=== PATIENT | male | born 1990 | race African-American/Black ===

== ENCOUNTER → 2021-07-13 | Outpatient (CLI) | payer BC, OTHER ==
--- NOTE | 2021-07-13 09:20 | RAD ---
COMPLETE ABDOMINAL ULTRASOUND Clinical History: Reason: EPIGASTRIC PAIN / Spl. Instructions: / History: Comparison: None. Technique: Sonographic examination of the abdomen was performed and multiple grayscale and color Dopp ler static images were obtained. Findings: Most of the liver is visualized and is homogeneous. The liver measures 14.1 cm. Ultrasound is not sen sitive for detecting solid liver lesions. Portal flow is hepatopetal. The common bile duct is normal in caliber, measuring 2 mm in diameter. The gallbladder wall measures less than 2 mm. Per report, sonographic Wadsworth sign is negative. There is no cholelithiasis or pericholecystic fluid. The pancreas and proximal abdominal aorta are obscured due to overlying bowel gas. IVC is unremarkabl e. The visualized abdominal aorta is normal caliber. The right kidney is normal in echotexture and measures 11.2 cm. The left kidney is normal in echotex ture and measures 9.7 cm. Corticomedullary differentiation is preserved. There is no hydronephrosis. The spleen is not enlarged, measuring 10.2 cm. IMPRESSION: There is no acute abdominal abnormality identified sonographically. Electronically signed by: Ismael Rowe MD (07/13/2021 9:18 AM) [id number]
== END ==
LOC: US 08:23
PROVIDERS: ATTEND Physician Assistant
DX: R10.13 Epigastric pain (principal)
CPT/HCPCS: 76700